=== PATIENT | male | born 1990 ===

== ENCOUNTER 2024-02-22 17:01 | Emergency (ER) ==
[2024-02-22 18:18] LABS: HIV (1/2) Antibody/Antigen NONREACTIVE (NonReactive); Hep C Index 0.07 S/CO (0-0.79)
[2024-02-22 18:24] LABS: Hep B Surf AB REACTIVE (NonReactive); Hep C IgG Ab NONREACTIVE S/CO (NonReactive)
[2024-02-22 18:53] LABS: HBSAB Concentration 1505.34 mIU/mL
== END 2024-02-22 17:35 | disposition home or self-care (01) ==
LOC: ERS 17:01
DX: S61.241A Puncture wound with foreign body of left index finger without damage to nail, initial encounter (principal); Z77.21 Contact with and (suspected) exposure to potentially hazardous body fluids; W22.8XXA Striking against or struck by other objects, initial encounter
CPT/HCPCS: 36415; 86706; 86803; 87389; 99283